=== PATIENT | female | born 1945 | race Caucasian/White ===

== ENCOUNTER 2017-03-23 18:32 | Emergency (ER) | payer OTHER ==
[~2017-03-23] VITALS: Ht 160 cm; Wt 116.3 kg
[~2017-03-23 18:32] MED LIST: ADULT LOW DOSE81 M1 PO; ALENDRONATE SOD70 MG PO; AMLODIPINE BESYL5 MG PO; ASPIR-LOW81 MG PO; ASPIRIN325 MG PO; CALCIUM 600+D1 EACH PO; CALCIUM CARBON500 M1 PO; CALTRATE 600 +1 EACH PO; CALTRATE600 MG PO; CHOLESTYRAMINE; CHOLESTYRAMINE L4 GM PO; COZAAR100 MG PO; DITROPAN5 MG; DITROPAN5 MG PO; FEOSOL325 MG PO; FERROUS SULFAT325 MG PO; FOSAMAX70 MG PO; LASIX40 MG PO; LASIX80 MG PO; LOSARTAN-HCTZ1 EAC2 PO; METOPROLOL SUCC50 MG PO; OMEPRAZOLE40 M1 PO; OXYBUTYNIN CHLOR5 MG PO; POTASSIUM CHLORIDE PO; PRILOSEC20 MG PO; PRILOSEC40 MG PO; TUMS300 MG PO; VENTOLIN HFA18 GM IH; VICODIN 5-5001 EACH PO; VIT B6; VITAMIN B-6100 MG PO; VITAMIN B-625 MG PO; VITAMIN B6100 MG PO; ZESTRIL,PRINIVI10 MG PO; ZOFRAN4 MG PO; [UNRECOGNIZED DRUG - OTHER] MC
[2017-03-23] MEDS ORDERED: KEFLEX500 MG PO (20:28)
[2017-03-23 20:47] VITALS: BP 141/68
== END 2017-03-23 20:47 | disposition home or self-care (01) ==
LOC: EME 18:32
DX: L03.115 Cellulitis of right lower limb (principal); I10 Essential (primary) hypertension; Z79.82 Long term (current) use of aspirin
CPT/HCPCS: 99281; 99283; J0696

== ENCOUNTER → 2017-03-30 | Outpatient (CLI) | payer MEDICARE, OTHER ==
[~2017-03-30] MED LIST changes: +KEFLEX500 MG PO
== END | disposition home or self-care (01) ==
LOC: CDC 11:03
DX: Z01.810 Encounter for preprocedural cardiovascular examination (principal); G56.02 Carpal tunnel syndrome, left upper limb; M25.532 Pain in left wrist; I44.4 Left anterior fascicular block; R94.31 Abnormal electrocardiogram [ECG] [EKG]
CPT/HCPCS: 93000

== ENCOUNTER 2017-06-20 07:49 | Emergency (ER) | payer OTHER ==
[~2017-06-20] VITALS: Ht 157.5 cm; Wt 102.3 kg
[2017-06-20 08:34] LABS: BASOPHIL (%) 0.6 % (0-1); EOSINOPHIL (%) 4.7 % (0-5); EOSINOPHIL COUNT 0.3 K/uL (0-0.3); HEMATOCRIT 41.2 % (36.0-46.0); HEMOGLOBIN 13.4 G/DL (11.9-15.5); IMMATURE GRANULOCYTE (%) 0.3 % (0.0-0.7); LYMPHOCYTE (%) 21.7 % (15-42); LYMPHOCYTE COUNT 1.4 K/uL (1.0-2.8); MCH 28.8 PG (29.0-34.0); MCHC 32.5 G/DL (30.0-36.0); MCV 88.4 FL (83-99); MONOCYTE (%) 8.9 % (3-12); MONOCYTE COUNT 0.6 K/uL (0-0.8); NEUTROPHIL (%) 63.8 % (45-76); NEUTROPHIL COUNT 4.2 K/uL (1.8-6.4); PLATELET COUNT 289 K/uL (156-360); RBC DIS.WIDTH-CV 14.4 % (11.8-14.6); RED BLOOD COUNT 4.66 M/uL (3.80-5.20); WHITE BLOOD COUNT 6.6 K/uL (4.1-10.2)
[2017-06-20 08:48] LABS: CHLORIDE 104 mEq/L (99-109); POTASSIUM 3.7 mEq/L (3.7-5.4); SODIUM 142 mEq/L (136-147)
[2017-06-20 08:50] LABS: GLUCOSE 91 mg/dL (70-99)
[2017-06-20 08:54] LABS: CREATININE 0.7 mg/dL (0.6-1.3); GFR ESTIMATE (CALCULATED) > 59 mL/min/; TROP-I INTERPRETATION NEGATIVE; TROPONIN-I < 0.01 ng/mL (0.0-0.30)
[2017-06-20 08:55] LABS: UREA NITROGEN (BUN) 23 mg/dL (9-23)
[2017-06-20 11:00] LABS: TROP-I INTERPRETATION NEGATIVE; TROPONIN-I < 0.01 ng/mL (0.0-0.30)
[2017-06-20 12:20] VITALS: BP 107/61
== END 2017-06-20 12:37 | disposition home or self-care (01) ==
LOC: EME 07:49
PROVIDERS: Emergency Medicine
DX: R07.89 Other chest pain (principal); J44.9 Chronic obstructive pulmonary disease, unspecified; M85.80 Other specified disorders of bone density and structure, unspecified site
CPT/HCPCS: 71045; 80048; 84484; 85025; 93005; 99281; 99285

== ENCOUNTER 2018-01-04 15:15 | Emergency (ER) | payer OTHER ==
[~2018-01-04] VITALS: Ht 167.6 cm; Wt 114.4 kg
[2018-01-04 17:23] LABS: CHLORIDE 107 mEq/L (99-109); POTASSIUM 3.8 mEq/L (3.7-5.4); SODIUM 142 mEq/L (136-147)
[2018-01-04 17:24] LABS: INTER. NORMALIZED RATIO 1.2
[2018-01-04 17:25] LABS: GLUCOSE 88 mg/dL (70-99)
[2018-01-04 17:26] LABS: PTT 32.7 SEC (25-37)
[2018-01-04 17:27] LABS: HEMATOCRIT 38.2 % (36.0-46.0); HEMOGLOBIN 12.7 G/DL (11.9-15.5); MCH 29.1 PG (29.0-34.0); MCHC 33.2 G/DL (30.0-36.0); MCV 87.6 FL (83-99); PLATELET COUNT 255 K/uL (156-360); RBC DIS.WIDTH-SD 45.4 % (39-53); RED BLOOD COUNT 4.36 M/uL (3.80-5.20); WHITE BLOOD COUNT 6.2 K/uL (4.1-10.2)
[2018-01-04 17:29] LABS: CREATININE 0.7 mg/dL (0.6-1.3); GFR ESTIMATE (CALCULATED) > 59 mL/min/
[2018-01-04 17:30] LABS: UREA NITROGEN (BUN) 14 mg/dL (9-23)
[2018-01-04 17:35] LABS: TROP-I INTERPRETATION NEGATIVE; TROPONIN-I < 0.01 ng/mL (0.0-0.30)
[2018-01-04 20:57] VITALS: BP 173/68
== END 2018-01-04 20:58 | disposition short-term general hospital (02) ==
LOC: EME 15:15
PROVIDERS: Emergency Medicine
DX: I77.1 Stricture of artery (principal); J45.909 Unspecified asthma, uncomplicated; M85.80 Other specified disorders of bone density and structure, unspecified site; J43.9 Emphysema, unspecified; M19.90 Unspecified osteoarthritis, unspecified site; Z79.82 Long term (current) use of aspirin
CPT/HCPCS: 70450; 70496; 70498; 71046; 80048; 84484; 85027; 85610; 85730; 93005; 99281; 99285

== ENCOUNTER 2018-01-11 18:04 | Observation (INO) | payer OTHER ==
[~2018-01-11] VITALS: Ht 160 cm; Wt 116.0 kg
[~2018-01-11 18:04] MED LIST changes: -CALCIUM 600+D1 EACH PO; +CALCIUM600 M1 PO; -PRILOSEC40 MG PO
[2018-01-11 18:37] LABS: HEMATOCRIT 40.3 % (36.0-46.0); HEMOGLOBIN 13.3 G/DL (11.9-15.5); MCH 28.8 PG (29.0-34.0); MCV 87.2 FL (83-99); PLATELET COUNT 279 K/uL (156-360); RBC DIS.WIDTH-CV 14.5 % (11.8-14.6); RBC DIS.WIDTH-SD 45.9 % (39-53); RED BLOOD COUNT 4.62 M/uL (3.80-5.20); WHITE BLOOD COUNT 7.2 K/uL (4.1-10.2)
[2018-01-11 18:45] LABS: CHLORIDE 104 mEq/L (99-109); POTASSIUM 3.5 mEq/L (3.7-5.4); SODIUM 139 mEq/L (136-147)
[2018-01-11 18:47] LABS: GLUCOSE 96 mg/dL (70-99)
[2018-01-11 18:51] LABS: CREATININE 0.7 mg/dL (0.6-1.3); GFR ESTIMATE (CALCULATED) > 59 mL/min/
[2018-01-11 18:52] LABS: UREA NITROGEN (BUN) 23 mg/dL (9-23)
[2018-01-11 20:00] LABS: APPEARANCE CLEAR ((CLEAR)); BILIRUBIN NEGATIVE; BLOOD SMALL; COLOR STRAW ((YELLOW)); GLUCOSE (STRIP) NEGATIVE; KETONES NEGATIVE; LEUKOCYTES NEGATIVE; NITRITE NEGATIVE; PROTEIN (STRIP) NEGATIVE; SPECIFIC GRAVITY 1.008 (1.000-1.030); UROBILINOGEN 0.2 MG/DL (0.2-1.0)
[2018-01-11 20:07] LABS: BACTERIA RARE /HPF; EPITHELIAL CELLS RARE /HPF; HYALINE CASTS 0-5 /LPF; MUCUS TRACE /LPF; RED BLOOD CELLS 0-5 /HPF (0-5); UCUL ADDED? NO; WHITE BLOOD CELLS 0-5 /HPF (0-5)
[2018-01-11] MEDS ORDERED: VITAMIN B-6100 MG PO (22:23)
[2018-01-11] MEDS ORDERED: LYRICA50 MG PO (22:24)
[2018-01-11] MEDS ORDERED: ELIQUIS5 MG PO (22:24)
[2018-01-11] MEDS ORDERED: ATORVASTATIN CA40 MG PO (22:24)
[2018-01-12 01:17] VITALS: BP 126/58
[2018-01-12 03:48] VITALS: BP 141/64
[2018-01-12 07:44] VITALS: BP 109/56
[2018-01-12 11:18] VITALS: BP 171/74
[2018-01-12 11:34] VITALS: BP 141/72
[2018-01-12 15:12] VITALS: BP 127/65
== END 2018-01-12 19:16 | disposition home or self-care (01) ==
LOC: EME 18:04 → 4SOUTH 22:10 → EDOF 22:10 → ENRESERV 22:11 → 4SOUTH 01-12 01:06
PROVIDERS: Emergency Medicine
DX: R29.6 Repeated falls (principal); I69.354 Hemiplegia and hemiparesis following cerebral infarction affecting left non-dominant side; I65.22 Occlusion and stenosis of left carotid artery; Z60.2 Problems related to living alone; J42 Unspecified chronic bronchitis; I10 Essential (primary) hypertension; Z79.01 Long term (current) use of anticoagulants; Z66 Do not resuscitate
CPT/HCPCS: 70450; 80048; 81003; 82306; 82607; 84443; 85027; 93005; 94660; 99281; 99285; G0378; G8978 GP CM; G8979 CJ; G8980 GP CM; G8987 GO CJ; G8988 CI; G8989 CJ